=== PATIENT | male | born 1960 | race African-American/Black ===

== ENCOUNTER 2016-12-24 17:35 | Emergency (ER) | payer MEDICAID, OTHER ==
[~2016-12-24] VITALS: Ht 175.3 cm; Wt 79.0 kg
[~2016-12-24 17:35] MED LIST: EMTR1TAB11 PO; IBUP-779 PO
[2016-12-24 21:46] VITALS: BP 140/80
[2016-12-24] MEDS ORDERED: CEFTRIAXONE SODIUM 250 MG/VIAL IM ONE (22:30)
[2016-12-24 22:52] LABS: CLARITY URINE CLEAR (CLEAR); COLOR URINE YELLOW (YELLOW); GLUCOSE URINE NEGATIVE (NEGATIVE); KETONES URINE NEGATIVE (NEGATIVE); LEUKOCYTE ESTERASE URINE NEGATIVE (NEGATIVE); NITRITE URINE NEGATIVE (NEGATIVE); OCCULT BLOOD URINE NEGATIVE (NEGATIVE); PROTEIN URINE NEGATIVE (NEGATIVE); SPECIFIC GRAVITY URINE 1.024 (1.005-1.030)
== END 2016-12-24 23:18 | disposition home or self-care (01) ==
LOC: ER 21:34
DX: H57.8 Other specified disorders of eye and adnexa (principal); R30.0 Dysuria; F17.200 Nicotine dependence, unspecified, uncomplicated
CPT/HCPCS: 81003; 96372; 99283; J0696

== ENCOUNTER 2017-12-17 18:31 | Emergency (ER) | payer OTHER ==
[~2017-12-17] VITALS: Ht 175.3 cm; Wt 83.3 kg
[2017-12-17 22:47] LABS: BASOPHILS % 1.2 % (0.0-2.0); EOSINOPHILS % 6.5 % (0.0-5.0); HEMOGLOBIN. 15.2 g/dL (14.0-18.0); MEAN CORPUSCULAR HEMOGLOBIN 31.7 pg (28.0-32.0); MEAN CORPUSCULAR VOLUME 94.1 fL (80.0-94.0); MEAN PLATELET VOLUME 7.8 fl (7.4-10.4); MONOCYTES % 8.7 % (2.0-8.0); NEUTROPHILS % 28.6 % (40.0-76.0); PLATELET 250 x1000/uL (130-400); RED BLOOD CELL COUNT 4.78 mill/uL (4.7-6.1); RED CELL DISTRIBUTION WIDTH 13.7 % (11.6-14.6)
[2017-12-17 22:51] LABS: CHLORIDE 107 mEq/L (98-107)
[2017-12-17 22:52] LABS: PROTHROMBIN TIME 10.7 sec (9.4-11.6)
[2017-12-18] MEDS ORDERED: CYCLOBENZAPRINE 10MG TABLET PO ONE (01:00)
[2017-12-18] MEDS ORDERED: IBUPROFEN 800MG TABLET PO ONE (01:00)
[2017-12-18 01:20] VITALS: BP 138/64
== END 2017-12-18 02:11 | disposition home or self-care (01) ==
LOC: ER 19:51
DX: M54.2 Cervicalgia (principal); F17.200 Nicotine dependence, unspecified, uncomplicated; R20.2 Paresthesia of skin; Z91.013 Allergy to seafood
CPT/HCPCS: 36415; 70450; 72125; 80053; 84484; 85025; 85610; 85730; 93005; 99285

== ENCOUNTER 2018-03-13 09:06 | Emergency (ER) | payer OTHER | END 2018-03-13 09:43 | disposition left against medical advice (07) | LOC: ER 09:06 | DX: Z53.21 Procedure and treatment not carried out due to patient leaving prior to being seen by health care provider (principal) ==

== ENCOUNTER 2018-05-02 11:13 | Emergency (ER) | payer OTHER ==
[~2018-05-02] VITALS: Ht 175.3 cm; Wt 82.0 kg
[2018-05-02 11:55] VITALS: BP 137/79
== END 2018-05-02 15:20 | disposition home or self-care (01) ==
LOC: ER 14:46
DX: G62.9 Polyneuropathy, unspecified (principal); M79.672 Pain in left foot; M19.90 Unspecified osteoarthritis, unspecified site; F17.200 Nicotine dependence, unspecified, uncomplicated; Z88.0 Allergy status to penicillin; Z91.013 Allergy to seafood
CPT/HCPCS: 82962; 99282

== ENCOUNTER 2018-08-31 02:18 | Emergency (ER) | payer OTHER, BC ==
[~2018-08-31] VITALS: Ht 175.3 cm; Wt 82.0 kg
[2018-08-31 02:42] VITALS: BP 145/86
== END 2018-08-31 05:30 | disposition left against medical advice (07) ==
LOC: ER 02:18
DX: R44.0 Auditory hallucinations (principal); Z53.21 Procedure and treatment not carried out due to patient leaving prior to being seen by health care provider

== ENCOUNTER 2020-04-02 01:01 | Emergency (ER) | payer OTHER, BC, MEDICAID ==
[~2020-04-02] VITALS: Ht 175.3 cm; Wt 81.0 kg
[2020-04-02] MEDS ORDERED: TRAMADOL 50MG TABLET PO ONE (02:15)
[2020-04-02 03:10] LABS: CLARITY URINE CLEAR (CLEAR); COLOR URINE YELLOW (YELLOW); KETONES URINE TRACE (NEGATIVE); LEUKOCYTE ESTERASE URINE TRACE (NEGATIVE); NITRITE URINE NEGATIVE (NEGATIVE); OCCULT BLOOD URINE NEGATIVE (NEGATIVE); PH URINE 5.5 (4.5-8.0); PROTEIN URINE NEGATIVE (NEGATIVE); SPECIFIC GRAVITY URINE 1.026 (1.005-1.030)
[2020-04-02] MEDS ORDERED: KETOROLAC 30MG/ML VIAL IM ONE (03:30)
[2020-04-02 04:25] VITALS: BP 144/86
== END 2020-04-02 04:26 | disposition home or self-care (01) ==
LOC: ER 01:01
DX: S39.012A Strain of muscle, fascia and tendon of lower back, initial encounter (principal); S29.012A Strain of muscle and tendon of back wall of thorax, initial encounter; X58.XXXA Exposure to other specified factors, initial encounter; N39.0 Urinary tract infection, site not specified; Y93.89 Activity, other specified; Y92.89 Other specified places as the place of occurrence of the external cause; F15.10 Other stimulant abuse, uncomplicated
CPT/HCPCS: 74176; 81003; 96372; 99284; J1885

== ENCOUNTER 2020-06-09 18:47 | Emergency (ER) | payer OTHER, MEDICAID ==
[~2020-06-09] VITALS: Ht 175.3 cm; Wt 90.0 kg
[2020-06-09] MEDS ORDERED: IBUPROFEN 600MG TABLET PO STA (19:18)
[2020-06-10 00:21] LABS: BASOPHILS % 1.1 % (0.0-2.0); EOSINOPHILS % 2.5 % (0.0-5.0); HEMATOCRIT. 43.4 % (42.0-52.0); HEMOGLOBIN. 14.9 g/dL (14.0-18.0); LYMPHOCYTES % 43.4 % (20.0-50.0); MEAN CORPUSCULAR HEMOGLOBIN 31.6 pg (28.0-32.0); MEAN CORPUSCULAR VOLUME 91.9 fL (80.0-94.0); MEAN PLATELET VOLUME 7.9 fl (7.4-10.4); MONOCYTES % 12.2 % (2.0-8.0); NEUTROPHILS % 40.8 % (40.0-76.0); PLATELET 231 x1000/uL (130-400); RED BLOOD CELL COUNT 4.72 mill/uL (4.7-6.1); RED CELL DISTRIBUTION WIDTH 13.9 % (11.6-14.6)
[2020-06-10 00:24] LABS: CHLORIDE 106 mEq/L (98-107)
[2020-06-10 02:35] VITALS: BP 144/90
== END 2020-06-10 02:41 | disposition home or self-care (01) ==
LOC: ER 18:47
DX: B34.9 Viral infection, unspecified (principal); F15.10 Other stimulant abuse, uncomplicated
CPT/HCPCS: 36415; 71045; 80053; 85025; 99284

== ENCOUNTER 2020-06-26 19:31 | Emergency (ER) | payer OTHER, MEDICAID ==
[~2020-06-26] VITALS: Ht 175.3 cm; Wt 81.8 kg
[2020-06-26 19:33] VITALS: BP 148/80
== END 2020-06-26 19:46 | disposition left against medical advice (07) ==
LOC: ER 19:31
DX: R06.02 Shortness of breath (principal); Z53.21 Procedure and treatment not carried out due to patient leaving prior to being seen by health care provider
CPT/HCPCS: 93005

== ENCOUNTER 2021-09-01 03:25 | Emergency (ER) | payer MEDICAID, OTHER ==
[~2021-09-01] VITALS: Ht 175.3 cm; Wt 82.0 kg
[~2021-09-01 03:25] MED LIST changes: +ALBU18HF2 IH; +AMLO10TA80 MT; +AZIT250T12 MT; +FLUT1DIS3 INH; +P20 MT
[2021-09-01 04:36] VITALS: BP 155/85
[2021-09-01] MEDS ORDERED: HYDR-4622 TP (06:33)
== END 2021-09-01 07:15 | disposition home or self-care (01) ==
LOC: ER 03:25
DX: L30.9 Dermatitis, unspecified (principal); T65.891A Toxic effect of other specified substances, accidental (unintentional), initial encounter; Y92.89 Other specified places as the place of occurrence of the external cause; I10 Essential (primary) hypertension; Z79.899 Other long term (current) drug therapy; Z88.0 Allergy status to penicillin
CPT/HCPCS: 99282

== ENCOUNTER 2022-01-02 04:19 | Emergency (ER) | payer OTHER ==
[~2022-01-02] VITALS: Ht 175.3 cm; Wt 83.5 kg
[~2022-01-02 04:19] MED LIST changes: +HYDR-4622 TP
[2022-01-02 04:34] VITALS: BP 158/88
== END 2022-01-02 07:38 | disposition left against medical advice (07) ==
LOC: ER 04:19
DX: Z53.21 Procedure and treatment not carried out due to patient leaving prior to being seen by health care provider (principal)

== ENCOUNTER 2022-07-15 10:53 | Emergency (ER) | payer MEDICARE, MEDICAID ==
[~2022-07-15] VITALS: Ht 175.3 cm; Wt 82.0 kg
[2022-07-15 10:59] VITALS: BP 173/91
== END 2022-07-15 14:56 | disposition left against medical advice (07) ==
LOC: ER 10:53
DX: Z53.21 Procedure and treatment not carried out due to patient leaving prior to being seen by health care provider (principal)

== ENCOUNTER 2023-03-29 18:40 | Emergency (ER) | payer MEDICARE, MEDICAID ==
[2023-03-29 18:55] VITALS: PULSE 61; RESP 18
== END 2023-03-29 19:09 | disposition left against medical advice (07) ==
LOC: ER 18:40
DX: R11.2 Nausea with vomiting, unspecified (principal); Z53.21 Procedure and treatment not carried out due to patient leaving prior to being seen by health care provider

== ENCOUNTER 2023-05-11 16:35 | Emergency (ER) | payer MEDICARE, MEDICAID ==
[~2023-05-11] VITALS: Ht 175.3 cm; Wt 87.0 kg
[2023-05-11 16:43] VITALS: BP 144/90; PULSE 96; RESP 16; TEMP 98.9; O2SAT 99
[2023-05-11] MEDS ORDERED: BENZ1LOZ73 MT (18:49)
== END 2023-05-11 20:01 | disposition home or self-care (01) ==
LOC: ER 16:35
DX: R05.9 Cough, unspecified (principal); J06.9 Acute upper respiratory infection, unspecified; Z79.899 Other long term (current) drug therapy
CPT/HCPCS: 71045; 99283

== ENCOUNTER 2023-11-24 09:44 | Emergency (ER) | payer MEDICAID, MEDICARE ==
[~2023-11-24] VITALS: Ht 175.3 cm; Wt 82.0 kg
[~2023-11-24 09:44] MED LIST changes: +BENZ1LOZ73 MT
[2023-11-24 09:50] VITALS: O2SAT 99
[2023-11-24] MEDS ORDERED: GABA-532 PO (10:31)
[2023-11-24] MEDS: GABAPENTIN 300MG CAPSULE PO NR (10:44)
[2023-11-24 10:48] VITALS: BP 152/84; PULSE 72; RESP 16; TEMP 98.7
== END 2023-11-24 12:01 | disposition home or self-care (01) ==
LOC: ER 09:44
DX: B02.29 Other postherpetic nervous system involvement (principal); B02.9 Zoster without complications; Z88.0 Allergy status to penicillin; Z91.013 Allergy to seafood
CPT/HCPCS: 99283

== ENCOUNTER 2023-11-29 23:26 | Emergency (ER) | payer MEDICARE, MEDICAID ==
[~2023-11-29] VITALS: Ht 175.3 cm; Wt 81.0 kg
[~2023-11-29 23:26] MED LIST changes: +GABA-532 PO
[2023-11-29 23:28] VITALS: BP 129/71; RESP 16; O2SAT 97
[2023-11-29 23:32] VITALS: PULSE 80
[2023-11-30 02:00] VITALS: TEMP 98.7
[2023-11-30] MEDS: ACETAMINOPHEN 325MG TABLET PO ONE (02:00)
[2023-11-30] MEDS ORDERED: CELE100C MT (15:07)
== END 2023-11-30 06:02 | disposition left against medical advice (07) ==
LOC: ER 23:32
DX: M79.604 Pain in right leg (principal); Z79.899 Other long term (current) drug therapy; Z88.0 Allergy status to penicillin
CPT/HCPCS: 99282

== ENCOUNTER 2023-11-30 14:02 | Emergency (ER) | payer MEDICARE, MEDICAID ==
[~2023-11-30] VITALS: Ht 175.3 cm; Wt 91.0 kg
[2023-11-30 14:27] VITALS: BP 141/74; PULSE 100; RESP 18; TEMP 98.5; O2SAT 98
[2023-11-30] MEDS ORDERED: CELE100C MT (15:07)
== END 2023-11-30 17:03 | disposition home or self-care (01) ==
LOC: ER 14:02
DX: B02.29 Other postherpetic nervous system involvement (principal); Z79.899 Other long term (current) drug therapy; Z88.0 Allergy status to penicillin
CPT/HCPCS: 99281